=== PATIENT | male | born 1950 | race Caucasian/White ===

== ENCOUNTER 2021-04-06 14:48 | Emergency (ER) | payer OTHER ==
[~2021-04-06] VITALS: Ht 175.3 cm; Wt 65.9 kg
[2021-04-06 17:24] VITALS: BP 147/83
== END 2021-04-06 18:04 | disposition home or self-care (01) ==
LOC: EMS 14:56
DX: K40.90 Unilateral inguinal hernia, without obstruction or gangrene, not specified as recurrent (principal)
CPT/HCPCS: 99281; Z7502